=== PATIENT | female | born 1940 | race Two or more races ===

== ENCOUNTER 2025-02-18 09:50 | Emergency (ER) | payer OTHER ==
[~2025-02-18] VITALS: Ht 177.8 cm; Wt 59.0 kg
[2025-02-18 09:55] VITALS: BP 161/69; O2SAT 96
[2025-02-18] MEDS ORDERED: SYNTHROID50 MCG (09:56)
[2025-02-18] MEDS ORDERED: TOPROL XL25 M1 (09:57)
[2025-02-18] MEDS ORDERED: CARDURA1 MG (09:57)
[2025-02-18] MEDS ORDERED: KETOROLAC TROMETHAMINE 30 MG VIAL IV ONE ×2 (10:30→16:15)
[2025-02-18 11:29] LABS: BASO % 0.4 % (0.1-1.2); EOS # 0.06 (0.04-0.54); EOS % 0.5 % (0.7-7.0); HEMATOCRIT 37.2 % (34.1-44.9); HEMOGLOBIN 12.6 g/dL (11.2-15.7); LYMPH # 0.93 (1.18-3.74); LYMPH % 7.6 % (19.3-53.1); MEAN CORPUSCULAR HEMOGLOBIN 31.4 pg (25.6-32.2); MONO # 1.75 (0.24-0.82); NEUT # 9.32 (1.56-6.13); NEUT % 76.7 % (34.0-71.1); PLATELET COUNT 203 K/uL (163-369); RED BLOOD COUNT 4.01 M/uL (3.93-5.22); RED CELL DISTRIBUTION WIDTH 13.5 % (11.6-14.4)
[2025-02-18 11:41] LABS: MONO % 14.4 % (4.7-12.5)
[2025-02-18 11:51] LABS: ERYTHROCYTE SEDIMENTATION RATE 58 mm/hr (0-30)
[2025-02-18 13:05] LABS: CALCIUM 9.3 mg/dL (8.5-10.1); CREATININE SERUM 0.76 mg/dL (0.55-1.02); GFR 72.86; POTASSIUM 3.36 mEq/L (3.5-5.1)
[2025-02-18] MEDS ORDERED: KETOROLAC TROMETHAMINE 30 MG VIAL ONE (16:12)
== END 2025-02-18 16:56 | disposition home or self-care (01) ==
LOC: ER
PROVIDERS: Emergency Medicine
DX: R60.0 Localized edema (principal); I10 Essential (primary) hypertension; E03.8 Other specified hypothyroidism; Z88.0 Allergy status to penicillin; M19.90 Unspecified osteoarthritis, unspecified site
CPT/HCPCS: 36415; 71045; 93925; 96365; 99284; J1885